=== PATIENT | male | born 1955 | race Caucasian/White ===

== ENCOUNTER → 2019-10-22 10:32 | Outpatient (BNVA) | payer MEDICARE, SELFPAY | PROVIDERS: Family Provider Registered Nurse; PCP Registered Nurse; Visit Provider Registered Nurse | DX: R19.7 Diarrhea, unspecified (principal); M54.5 Low back pain; G44.311 Acute post-traumatic headache, intractable; N52.8 Other male erectile dysfunction; R33.9 Retention of urine, unspecified | CPT/HCPCS: 83630; 87493; 87505; G0103 ==

== ENCOUNTER 2019-10-29 12:40 | Outpatient (RCR) | payer MEDICARE, SELFPAY | END 2019-11-21 23:59 | disposition home or self-care (01) | LOC: SPT 12:40 | PROVIDERS: Family Provider Registered Nurse; PCP Registered Nurse; Referring Provider Registered Nurse; Visit Provider Registered Nurse | DX: M54.5 Low back pain (principal); G44.311 Acute post-traumatic headache, intractable | CPT/HCPCS: 97110; 97140; 97162 ==

== ENCOUNTER 2019-11-03 15:04 | Emergency (ER) | payer MEDICARE, SELFPAY ==
[2019-11-03 15:24] VITALS: BP 146/83; PULSE 66; RESP 16; TEMP 36.6; O2SAT 94; BMI 32.9
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
--- NOTE | 2019-11-03 15:51 | PC.NURSE ---
PT TO XRAY VIA WHEELCHAIR
--- NOTE | 2019-11-03 15:56 | PC.NURSE ---
Pt returned from xray
[2019-11-03] MEDS: methylPREDNISolone (DEPO) 80 MG/ML INJ 1 mL IM (16:30)
[2019-11-03] MEDS: ketorolac 60 mg/2 mL INJ IM (16:35)
== END 2019-11-03 16:45 | disposition home or self-care (01) ==
PROVIDERS: Emergency Provider Nurse Practitioner Family; Family Provider Registered Nurse; PCP Registered Nurse
DX: M54.5 Low back pain (principal); G89.29 Other chronic pain; E11.9 Type 2 diabetes mellitus without complications; I10 Essential (primary) hypertension; Z87.891 Personal history of nicotine dependence; Z79.82 Long term (current) use of aspirin
CPT/HCPCS: 72100; 96372; 99281; 99283; J1040; J1885

== ENCOUNTER 2019-11-10 08:54 | Day surgery (SDC) | payer MEDICARE, SELFPAY ==
[2019-11-09 08:27] VITALS: BMI 32.9
--- NOTE | 2019-11-10 09:38 | ANES.PREANE2 ---
Pre-Anesthetic Assessment Pre-Anesthetic Assessment: Height/Weight: Height 1.8 m Weight 107.048 kg Proposed Procedure: Operation Date: 11/10/19 10:45 Proposed Procedures p Colonoscopy 49422 K52.9(Not Applicable) - Silvino Aguiar MD Social: Social History: Tobacco (quit 2009) and No alcohol Exam: Pre-Anes Outpt Exam: alert, oriented x 3, clear to auscultation bilaterally and regular rate & rhythm Airway: Submandibular: WNL Cervical ROM: WNL MP: 2 Dentition: False (upper) and Other (teeth very poor) History/ROS: No significant history except as noted Pulmonary: Pulmonary: None reported CV/HEM: CV/HEM: HTN : : None reported Hepatic: Hepatic: None reported GI: GI: GERD (controlled) Comments: s/p colon resec Metabolic: Metabolic: DM and Hyperlipidemia Musc/skel: Musc/skel: OA/DJD Neuropsych: Neuropsych: Dementia Anesthetic Plan: ASA status: 3 Anesthesia: Anesthesia Evaluation and MAC Risk of > 500 ml blood loss (7ml/kg in children): No PFSH Anesthesia PFSH: Medical History Acid reflux Back pain, lumbosacral Cancer of ascending colon Diabetes Hypertension Surgical History History of back surgery Hx of tonsillectomy S/P exploratory laparotomy 12/2018 S/P partial resection of colon 12/2018 Status post colonoscopy Family History Denies family history of Anesthesia complication Bleeding disorder Social History Smoking and tobacco status: former smoker Alcohol intake: never Lives independently: Yes Household members: spouse Marital status: Current occupational status: unemployed History of recent travel: No Current gender identity: Male Data Anesthesia Cardiac Studies: No Data to Display
[2019-11-10 10:19] VITALS: BP 151/87; PULSE 59; RESP 18; TEMP 36.1; O2SAT 95
[2019-11-10] MEDS: sodium chloride 0.9% 1,000 ML 30 ML (10:32)
[2019-11-10 10:35] LABS: Glucose Point of Care 100 mg/dL (70-110)
--- NOTE | 2019-11-10 11:09 | W.PM.OPSUD ---
Surgery/Procedure H&P Update DATE OF PROCEDURE: November 10, 2019 DATE H&P PERFORMED: 11/03/19 H&P UPDATE INFORMATION: H&P completed within last 30 days and No changes to prior documentation PREOP DIAGNOSIS: Chronic diarrhea PLANNED PROCEDURE: Operation Date: 11/10/19 10:45 Proposed Procedures p Colonoscopy 97037 K52.9(Not Applicable) - Silvino Aguiar MD
[2019-11-10 11:55] VITALS: BP 107/69; PULSE 56; RESP 16; TEMP 36.1; O2SAT 97
--- NOTE | 2019-11-10 12:04 | ANE.PACU2 ---
 Inpatient post-anesthesia follow up: Airway intact: Yes Vital signs: Temperature 97.0 F Pulse Rate 56 Respiratory Rate 16 Blood Pressure 107/69 Pulse Oximetry 97 Oxygen Delivery Me thod Nasal Cannula Oxygen Flow Rate 2 Fraction of Inspir ed Oxygen Hydration adequate: Yes Nausea and vomiting: No Pain level: 2 Mental status: Baseline
[2019-11-10 12:06] VITALS: BP 108/66; PULSE 60; RESP 16; O2SAT 99
== END 2019-11-10 12:21 | disposition home or self-care (01) ==
PROVIDERS: Family Provider Registered Nurse; PCP Registered Nurse; Visit Provider Surgery
PROC: 0DJD8ZZ Inspection of Lower Intestinal Tract, Via Natural or Artificial Opening Endoscopic (ICD-10-PCS; CPT 45378; principal; 2019-11-10 10:45)
DX: K52.9 Noninfective gastroenteritis and colitis, unspecified (principal); Z79.82 Long term (current) use of aspirin; K21.9 Gastro-esophageal reflux disease without esophagitis; E11.9 Type 2 diabetes mellitus without complications; I10 Essential (primary) hypertension; Z90.49 Acquired absence of other specified parts of digestive tract; Z87.891 Personal history of nicotine dependence; K57.30 Diverticulosis of large intestine without perforation or abscess without bleeding; E78.5 Hyperlipidemia, unspecified; M19.90 Unspecified osteoarthritis, unspecified site
CPT/HCPCS: 12345; 36416; 45380; 82274; 82962; 83630; 87493; 87505; 88305; J2704; J7030

== ENCOUNTER 2019-11-22 06:00 | Outpatient (RCR) | payer MEDICARE, SELFPAY | END 2019-12-22 23:59 | disposition home or self-care (01) | LOC: SPT 06:00 | PROVIDERS: Family Provider Registered Nurse; PCP Registered Nurse; Referring Provider Registered Nurse; Visit Provider Registered Nurse | DX: M54.5 Low back pain (principal); C44.311 Basal cell carcinoma of skin of nose | CPT/HCPCS: 97110 ==

== ENCOUNTER 2019-11-27 12:37 | Outpatient (CLI) | payer MEDICARE, SELFPAY ==
--- NOTE | 2019-11-27 13:00 | MR_ITS ---
WS: [id number] MRI LUMBAR SPINE NONCONTRAST TECHNIQUE: Sagittal T1, T2 and STIR imaging. Axial T1 and T2 imaging. CLINICAL INFORMATION: lumbar back pain COMPARISON: None. FINDINGS: Mild lumbar curve. No acute compression. Grade 1 anterolisthesis L5 on S1 with remote appearing left L5-S1 hemilaminectomy. Prominent dorsal epidural fat at the L3 level results in moderate to severe na rrowing of the thecal sac. L1-L2: No significant disc bulging. Mild facet arthropathy. Spinal canal and foramen are patent. L2-L3: Minimal right eccentric disc bulging with mild right and no left foraminal narrowing. Mild fac et arthropathy. Spinal canal is patent. L3-L4: Mild annular bulging with moderate central canal stenosis. Prominent dorsal epidural fat contr ibutes to stenosis. Mild right foraminal narrowing. Moderate facet arthropathy and ligament flavum hy pertrophy. L4-L5: Mild annular bulging with slight effacement of ventral thecal sac. Spinal canal and foramen ar e patent. Mild facet arthropathy. L5-S1: Slight anterolisthesis L5 on S1. Prior left L5-S1 hemilaminectomy. Advanced right facet arthro soledad. Mild right and no significant left foraminal narrowing. Visualized pelvic bony structures: Normal. Paravertebral soft tissues: Normal. MR/MR lumbar spine wo con* [id number] IMPRESSION: 1. Mild lumbar curve. No acute compression. 2. Prominent dorsal epidural fat L3-4 in combination with facet arthropathy an d ligamentum flavum hypertrophy results in moderate central canal stenosis. 3. Prior postoperative changes remote left L5-S1 hemilaminectomy. Spinal canal and foramen are patent at this level. 4. Trace anterolisthesis L5 on S1. 5. Mild right L3-4 foraminal narrowing. 6. Moderate facet arthropathy worse at L3-L4 and right L5-S1.
== END 2019-11-27 12:38 | disposition home or self-care (01) ==
LOC: RADSHAW 12:40
PROVIDERS: Family Provider Registered Nurse; PCP Registered Nurse; Visit Provider Registered Nurse
DX: M54.5 Low back pain (principal)
CPT/HCPCS: 72148

== ENCOUNTER 2019-12-02 07:51 | Outpatient (CLI) | payer MEDICARE, SELFPAY ==
--- NOTE | 2019-12-02 09:30 | CT_ITS ---
WS: [id number] CT ABDOMEN AND PELVIS WITH CONTRAST HISTORY: DIARRHEA, history of colon surgery. TECHNIQUE: Imaging performed of the abdomen and pelvis with IV contrast. Single phase imaging of the abdomen. Coronal and sagittal reformats are submitted. All CT scans at [facility] use at least one of these dose optimization techniques: automated exposure control; mA and/or kV adjustment per patient size (includes targeted exams where dose is matched to clinical indication); or iterativ e reconstruction. IV CONTRAST: Omnipaque 300; 95 mL IV. Oral contrast: Yes. DLP: 1205.49 mGycm COMPARISON: 01/02/2019 Lower thorax: Lung bases are clear. Heart is normal size. Small hiatal hernia. Liver/biliary system: Hypoechoic nodule measuring 6 mm in the LEFT lobe is stable. No metastatic dise ase. No biliary dilatation. Gallbladder: Normal. No gallstones or wall thickening. No pericholecystic fluid. Pancreas: Normal. Spleen: Normal. Adrenal glands: Normal. Right kidney: Normal. Left kidney: Normal. Aorta: Mild atherosclerosis and ectasia. No significant aneurysm. Lymphadenopathy: None. Free fluid: None. GI tract: Status post RIGHT hemicolectomy. There is slight dilatation of the ileocolic anastomosis. N o recurrent mass. No GI tract obstruction. There are several diverticula in the descending and sigmoi d colon. Most significant burden in the sigmoid colon with tortuosity and long segment mucosal thicke lina from chronic diverticulosis. Abdominal wall: Postsurgical changes along the midline of the anterior abdominal wall. Improved since the prior study from 01/02/2019 as expected. There is a small defect in the supraumbilical RIGHT late ral abdominal wall containing fat only. Pelvis: Normally distended urinary bladder. No free fluid or adenopathy. Bones: No osteoblastic or osteolytic bone disease. CT/CT abdomen pelvis w con* [id number] IMPRESSION: 1. Status post RIGHT hemicolectomy with stable ileal colic anastomosis. No rec urrent mass or adenopathy. 2. Extensive sigmoid diverticulosis with scattered diverticula in the descendi ng colon. No evidence for acute diverticulitis. 3. Small hiatal hernia. 4. Atherosclerosis aorta.
[2019-12-02] MEDS: iohexol 300 mg/mL 50 mL Btl PO (09:35)
[2019-12-02 09:37] LABS: Blood Urea Nitrogen 19 mg/dL (8-23)
[2019-12-02] MEDS: iohexol 300 mg/mL 100 mL Btl IV (09:45)
[2019-12-02 11:27] LABS: Carcinoembryonic Antigen 2.1 ng/mL (0.0-4.7)
== END 2019-12-02 07:52 | disposition home or self-care (01) ==
LOC: RADWPI 07:55
PROVIDERS: Family Provider Registered Nurse; PCP Registered Nurse; Visit Provider Surgery
DX: K57.30 Diverticulosis of large intestine without perforation or abscess without bleeding (principal); K44.9 Diaphragmatic hernia without obstruction or gangrene; I70.0 Atherosclerosis of aorta; Z98.890 Other specified postprocedural states; R19.7 Diarrhea, unspecified
CPT/HCPCS: 74177; 82378; 82565; 84520; Q9967

== ENCOUNTER → 2019-12-07 09:05 | Outpatient (BNVA) | payer MEDICARE, SELFPAY | PROVIDERS: Family Provider Registered Nurse; PCP Registered Nurse; Referring Provider Registered Nurse; Visit Provider Anesthesiology Pain Medicine | DX: M47.816 Spondylosis without myelopathy or radiculopathy, lumbar region (principal); M51.36 Other intervertebral disc degeneration, lumbar region; M54.40 Lumbago with sciatica, unspecified side; M62.830 Muscle spasm of back; Z79.891 Long term (current) use of opiate analgesic | CPT/HCPCS: 99204; 99205 ==

== ENCOUNTER → 2019-12-17 13:48 | Outpatient (BNVA) | payer MEDICARE, SELFPAY | PROVIDERS: Family Provider Registered Nurse; PCP Registered Nurse; Visit Provider Anesthesiology Pain Medicine | DX: M47.816 Spondylosis without myelopathy or radiculopathy, lumbar region (principal); M48.062 Spinal stenosis, lumbar region with neurogenic claudication | CPT/HCPCS: 64493; 64494; 64495; 64520; J2001; J3490 ==

== ENCOUNTER 2019-12-21 15:43 | Outpatient (CLI) | payer MEDICARE, SELFPAY ==
--- NOTE | 2019-12-21 08:00 | MR_ITS ---
WS: [id number] MRI LUMBAR SPINE WITH CONTRAST. HISTORY: Low back pain Prior noncontrast study obtained on 11/27/2019. COMPARISON: 11/27/2019 TECHNIQUE: Sagittal and axial multisequence imaging postcontrast submitted. Lumbar alignment is normal. Disc spaces and vertebral body heights are well-maintained. Postsurgical changes LEFT hemilaminectomy defect at L5-S1. There is an additional fluid collection measuring 1.3 cm in diameter posterior to the L3 spinous proc ess. This was not present on the prior study may be due to recent injection for pain management. Jaspal tional enhancement surrounding the RIGHT L5-S1 facet joint and soft tissues. Mild enhancement and lig amentum flavum at the L3-4 level. There is abundant posterior epidural fat produce significant stenos is and deformity of the ventral thecal sac and nerve roots. No mass or evidence for recurrent disc. MR/MR lumbar spine w con [id number] IMPRESSION: 1. Post contrast imaging only. 2. Status post LEFT hemilaminectomy defect at L5-S1 with no complications appa rent. No recurrent disc herniations are identified. 3. New 1.3 cm fluid collection with peripheral enhancement posterior to the L3 spinous process. May be from a recent injection by pain management. 4. No discitis or osteomyelitis. 5. Significant central canal stenosis at L3-4 and deformity of the thecal sac at L5-S1.
== END 2019-12-21 15:44 | disposition home or self-care (01) ==
PROVIDERS: Family Provider Registered Nurse; PCP Registered Nurse; Visit Provider Licensed Practical Nurse
DX: M54.5 Low back pain (principal); M48.061 Spinal stenosis, lumbar region without neurogenic claudication
CPT/HCPCS: 72149; A9579

== ENCOUNTER → 2020-02-17 09:42 | Outpatient (BNVA) | payer MEDICARE, SELFPAY | PROVIDERS: Family Provider Registered Nurse; PCP Registered Nurse; Visit Provider Anesthesiology Pain Medicine | DX: M47.816 Spondylosis without myelopathy or radiculopathy, lumbar region (principal); M48.062 Spinal stenosis, lumbar region with neurogenic claudication; M51.36 Other intervertebral disc degeneration, lumbar region; M54.41 Lumbago with sciatica, right side; M62.830 Muscle spasm of back; Z79.891 Long term (current) use of opiate analgesic | CPT/HCPCS: 99213 ==

== ENCOUNTER → 2020-03-04 12:43 | Outpatient (BNVA) | payer MEDICARE, SELFPAY | PROVIDERS: Family Provider Registered Nurse; PCP Registered Nurse; Visit Provider Anesthesiology Pain Medicine | DX: M47.816 Spondylosis without myelopathy or radiculopathy, lumbar region (principal); M48.062 Spinal stenosis, lumbar region with neurogenic claudication | CPT/HCPCS: 64493; 64494; 64495; J2001; J3490 ==

== ENCOUNTER → 2020-03-15 09:22 | Outpatient (BNVA) | payer MEDICARE, SELFPAY | PROVIDERS: Family Provider Registered Nurse; PCP Registered Nurse; Visit Provider Registered Nurse | DX: E11.42 Type 2 diabetes mellitus with diabetic polyneuropathy (principal); E66.9 Obesity, unspecified | CPT/HCPCS: 80053; 80061; 83036; 85025 ==

== ENCOUNTER → 2020-03-28 10:52 | Outpatient (BNVA) | payer MEDICARE, SELFPAY | PROVIDERS: Family Provider Registered Nurse; PCP Registered Nurse; Visit Provider Anesthesiology Pain Medicine | DX: M47.816 Spondylosis without myelopathy or radiculopathy, lumbar region (principal); M48.062 Spinal stenosis, lumbar region with neurogenic claudication; M51.17 Intervertebral disc disorders with radiculopathy, lumbosacral region; M51.36 Other intervertebral disc degeneration, lumbar region; M48.00 Spinal stenosis, site unspecified; M62.830 Muscle spasm of back; Z98.890 Other specified postprocedural states | CPT/HCPCS: 99213 ==

== ENCOUNTER → 2020-05-23 10:30 | Outpatient (BNVA) | payer MEDICARE, SELFPAY | PROVIDERS: Family Provider Registered Nurse; PCP Registered Nurse; Visit Provider Anesthesiology Pain Medicine | DX: M47.816 Spondylosis without myelopathy or radiculopathy, lumbar region (principal); M48.062 Spinal stenosis, lumbar region with neurogenic claudication; M51.36 Other intervertebral disc degeneration, lumbar region; M51.17 Intervertebral disc disorders with radiculopathy, lumbosacral region; M62.830 Muscle spasm of back; M48.00 Spinal stenosis, site unspecified; Z98.890 Other specified postprocedural states | CPT/HCPCS: 99213 ==

== ENCOUNTER → 2020-08-12 10:10 | Outpatient (BNVA) | payer MEDICARE, SELFPAY | PROVIDERS: Family Provider Registered Nurse; PCP Registered Nurse; Visit Provider Registered Nurse | DX: E11.9 Type 2 diabetes mellitus without complications (principal) | CPT/HCPCS: 80053; 83036 ==

== ENCOUNTER → 2020-08-23 11:04 | Outpatient (BNVA) | payer MEDICARE, SELFPAY | PROVIDERS: Family Provider Registered Nurse; PCP Registered Nurse; Visit Provider Registered Nurse | DX: J30.9 Allergic rhinitis, unspecified (principal); R09.82 Postnasal drip; J06.9 Acute upper respiratory infection, unspecified | CPT/HCPCS: 87635 ==

== ENCOUNTER → 2020-10-04 09:10 | Outpatient (BNVA) | payer MEDICARE, SELFPAY | PROVIDERS: Family Provider Registered Nurse; PCP Registered Nurse; Visit Provider Anesthesiology Pain Medicine | DX: M48.062 Spinal stenosis, lumbar region with neurogenic claudication (principal); M47.816 Spondylosis without myelopathy or radiculopathy, lumbar region; M51.36 Other intervertebral disc degeneration, lumbar region; M51.17 Intervertebral disc disorders with radiculopathy, lumbosacral region; M48.00 Spinal stenosis, site unspecified; M62.830 Muscle spasm of back; Z98.890 Other specified postprocedural states | CPT/HCPCS: 99213 ==

== ENCOUNTER → 2021-01-09 09:37 | Outpatient (BNVA) | payer MEDICARE, SELFPAY | PROVIDERS: Family Provider Registered Nurse; PCP Registered Nurse; Visit Provider Registered Nurse | DX: E78.5 Hyperlipidemia, unspecified (principal); E11.9 Type 2 diabetes mellitus without complications; K21.9 Gastro-esophageal reflux disease without esophagitis; I10 Essential (primary) hypertension; M54.40 Lumbago with sciatica, unspecified side | CPT/HCPCS: 80053; 80061; 83036; 85025 ==

== ENCOUNTER 2021-04-01 12:49 | Outpatient (CLI) | payer MEDICARE, SELFPAY | END 2021-04-01 12:50 | disposition home or self-care (01) | LOC: LAB 12:56 | PROVIDERS: PCP Registered Nurse; Visit Provider Surgery | DX: R19.7 Diarrhea, unspecified (principal) | CPT/HCPCS: 83630; 87177; 87209; 87493; 87506 ==

== ENCOUNTER → 2021-05-17 08:20 | Outpatient (BNVA) | payer MEDICARE, SELFPAY | PROVIDERS: PCP Registered Nurse; Visit Provider Anesthesiology Pain Medicine | DX: G89.29 Other chronic pain (principal); M51.36 Other intervertebral disc degeneration, lumbar region; M48.062 Spinal stenosis, lumbar region with neurogenic claudication; M47.816 Spondylosis without myelopathy or radiculopathy, lumbar region; M51.17 Intervertebral disc disorders with radiculopathy, lumbosacral region; M62.830 Muscle spasm of back; Z98.890 Other specified postprocedural states | CPT/HCPCS: 99214 ==

== ENCOUNTER 2021-05-19 15:58 | Observation (INO) | payer MEDICARE, SELFPAY ==
[2021-05-19] VITALS (15 sets, daily range): BP systolic 97–132; BP diastolic 58–78; PULSE 69–95; RESP 12–18; TEMP 36.1–38.6; O2SAT 91–97; BMI 32.9
--- NOTE | 2021-05-19 12:31 | ANES.PREANE2 ---
Documented by User: Luli Ozuna CRNA 05/19/21 12:37 Pre-Anesthetic Assessment Pre-Anesthetic Assessment: Height/Weight: Height 1.8 m Preop Diagnosis: Chronic diarrhea Proposed Procedure: Operation Date: 05/19/21 12:10 Proposed Procedures p Incision And Drainage buttock abscess L02.31 60306(Not Applicable) - Silvino Aguiar MD Familial anesthetic complications: none Was Beta Kerrie taken within 24 hours: N/A Was Clonidine taken within 24 hours: N/A Last intake: 05/18/21 1730- meal 05/19/21 0900 Social: Social History: No alcohol and No tobacco Airway: Submandibular: WNL Cervical ROM: WNL MP: 2 Dentition: Full History/ROS: No significant history except as noted Pulmonary: Pulmonary: COPD and None reported CV/HEM: CV/HEM: HTN : : None reported Hepatic: Hepatic: None reported GI: GI: GERD Metabolic: Metabolic: DM and Hyperlipidemia Musc/skel: Musc/skel: Lower Back Pain Neuropsych: Neuropsych: Neuropathy (feet) Anesthetic Plan: ASA status: 3 Anesthesia: General, Choice and MAC Risk of > 500 ml blood loss (7ml/kg in children): No PFSH Anesthesia PFSH: Medical History (Updated 05/19/21 @ 12:45 by Silvino Aguiar MD) Cancer of ascending colon Diabetes Epidural lipomatosis GERD (gastroesophageal reflux disease) Hypertension Intervertebral disc disorder with radiculopathy of lumbosacral region Lumbar stenosis with neurogenic claudication Stenosis, spinal, lumbar Surgical History History of back surgery 1980 Left L5-S1 hemilaminectomy Hx of tonsillectomy S/P exploratory laparotomy 12/2018 S/P partial resection of colon 12/2018 Status post colonoscopy 11/10/19:normal Family History (Updated 05/19/21 @ 11:03 by Odalys Reno) Other Cancer Denies family history of Anesthesia complication Bleeding disorder Social History Alcohol intake: never Household members: spouse Marital status: Current occupational status: retired History of recent travel: No Data Anesthesia Cardiac Studies: No Data to Display Documented by User: Flex Bonilla 05/19/21 15:44 PFSH Anesthesia PFSH: Medical History (Updated 05/19/21 @ 12:45 by Silvino Aguiar MD) Cancer of ascending colon Diabetes Epidural lipomatosis GERD (gastroesophageal reflux disease) Hypertension Intervertebral disc disorder with radiculopathy of lumbosacral region Lumbar stenosis with neurogenic claudication Stenosis, spinal, lumbar Surgical History History of back surgery 1980 Left L5-S1 hemilaminectomy Hx of tonsillectomy S/P exploratory laparotomy 12/2018 S/P partial resection of colon 12/2018 Status post colonoscopy 11/10/19:normal Family History (Updated 05/19/21 @ 11:03 by Odalys Reno) Other Cancer Denies family history of Anesthesia complication Bleeding disorder Social History Alcohol intake: never Household members: spouse Marital status: Current occupational status: retired History of recent travel: No Data Anesthesia Cardiac Studies: No Data to Display
--- NOTE | 2021-05-19 12:39 | W.PM.OPSUD ---
Surgery/Procedure H&P Update DATE OF PROCEDURE: May 19, 2021 DATE H&P PERFORMED: 05/19/21 H&P UPDATE INFORMATION: I have reviewed H&P completed within last 30 days, I have examined patient prior to procedure and No changes to prior documentation PREOP DIAGNOSIS: perianal abscess PLANNED PROCEDURE: Operation Date: 05/19/21 12:10 Proposed Procedures p Incision And Drainage buttock abscess L02.31 [id number](Not Applicable) - Silvino Aguiar MD
[2021-05-19] MEDS: sodium chloride 0.9% 1,000 ML 30 ML IV (12:59)
[2021-05-19] MEDS: fentaNYL 50 mcg/mL INJ 2mL IVP (13:01)
[2021-05-19] MEDS: piperacillin-tazobactam 3.375 GM in sodium chloride 0.9% (plus) 50 ML IV ×2 (13:44→21:51)
--- NOTE | 2021-05-19 14:27 | P.PCN_ITS ---
Documented by User: Mukund Candelario CRNA 05/19/21 14:28 PACU note PACU note: VSS, Good respiratory effort, report to SHAFT TENDER Post-Anesthesia Exam: awake
--- NOTE | 2021-05-19 14:27 | PM.PACU ---
Documented by User: Mukund Candealrio CRNA 05/19/21 14:28 PACU note PACU note: VSS, Good respiratory effort, report to ADVISOR TO COMMAND IN COMBAT Post-Anesthesia Exam: awake
--- NOTE | 2021-05-19 15:44 | ANE.PACU2 ---
Inpatient post-anesthesia follow up: Airway intact: Yes Vital signs: Temperature 98.2 F Pulse Rate 75 Respiratory Rate 16 Blood Pressure 116/71 Pulse Oximetry 93 Oxygen Delivery Me thod Room Air Oxygen Flow Rate Fraction of Inspir ed Oxygen Hydration adequate: Yes Nausea and vomiting: No Pain level: 2 Mental status: Baseline
--- NOTE | 2021-05-19 16:02 | PM.OP ---
Operative Report Date of procedure: May 19, 2021 Pre-op Diagnosis: perianal abscess Post-op Diagnosis: 7 x 5 cm perianal abscess Procedure Done: Incision and drainage of perianal abscess Pathology: Aerobic and anaerobic wound cultures Surgeon: Silvino Aguiar Anesthesia: MAC Condition: stable Disposition: PACU Procedure: The patient was taken to the operating room and placed in left lateral position under MAC after IV antibiotic had been administered. The perianal area was prepped and draped in a sterile manner. Using a 15 blade a 5 cm radial incision was made about 3 cm from the anal verge at the area of maximum fluctuance with drainage of yaya pus. Loculations were taken down bluntly, wound irrigated with saline and packed with Kerlix gauze soaked in 0.5% Marcaine. Sterile dressings were applied. The patient was transferred to recovery room in stable condition.
[2021-05-19] MEDS: oxyCODONE-APAP 5-325 mg Tablet 1 TAB PO (16:53)
[2021-05-19 17:23] LABS: Glucose Point of Care 86 mg/dL (70-110)
[2021-05-19] MEDS: sennosides-docusate Tablet 1 TAB PO (17:55)
[2021-05-19 21:33] LABS: Glucose Point of Care 122 mg/dL (70-110)
[2021-05-19] MEDS: lactated ringers 1,000 ML 100 ML IV (21:51)
[2021-05-19] MEDS: acetaminophen 325 mg Tablet 650 MG PO (21:52)
[2021-05-20] VITALS (7 sets, daily range): BP systolic 101–128; BP diastolic 60–78; PULSE 66–72; RESP 16–18; TEMP 36.6–37.3; O2SAT 92–94
[2021-05-20] MEDS: piperacillin-tazobactam 3.375 GM in sodium chloride 0.9% (plus) 50 ML IV ×2 (06:27→13:37)
[2021-05-20] MEDS: enoxaparin 40 mg/0.4 mL Syringe SUBCUT (06:27)
[2021-05-20] MEDS: oxyCODONE-APAP 5-325 mg Tablet 1 TAB PO ×2 (06:33→16:47)
[2021-05-20 06:51] LABS: Glucose Point of Care 97 mg/dL (70-110)
[2021-05-20] MEDS: sennosides-docusate Tablet 1 TAB PO (08:29)
[2021-05-20 09:48] LABS: Basophils % 0.4 %; Eosinophils # 0.3 10^3/uL (0.0-0.8); Eosinophils % 3.1 %; Hematocrit 40.6 % (42.0-52.0); Hemoglobin 13.1 g/dL (11.7-16.6); Lymphocytes # 1.1 10^3/uL (0.8-4.8); Lymphocytes % 11.9 %; Mean Corpuscular HGB Conc 32.3 g/dL (30.0-36.0); Mean Corpuscular Hemoglobin 28.8 pg (28.0-34.0); Mean Corpuscular Volume 89.2 fl (80-94); Monocytes # 0.6 10^3/uL (0.2-0.9); Monocytes % 6.6 %; Neutrophils # 7.01 10^3/uL (1.8-7.7); Neutrophils % 77.6 %; Nucleated Red Blood Cells % 0 %; Platelet Count 217 10^3/cmm (130-400); Red Blood Count 4.55 10^6/uL (4.1-5.3); Red Cell Distribution Width 13.1 % (12.1-15.1); White Blood Count 9.1 10^3/uL (4.0-10.0)
[2021-05-20 10:10] LABS: Anion Gap 17.1 (5-19); Blood Urea Nitrogen 17 mg/dL (8-23); Calcium 8.4 mg/dL (8.5-10.5); Carbon Dioxide 22 mmol/L (22-29); Chloride 101 mmol/L (98-107); Glomerular Filtration Rate 84.2 mL/min (90-130); Glucose 139 mg/dL (65-115); Osmolality Calculated 286 mOsm/kg (285-295); Potassium 4.1 mmol/L (3.5-5.1); Sodium 136 mmol/L (136-145)
[2021-05-20 11:05] LABS: Glucose Point of Care 119 mg/dL (70-110)
--- NOTE | 2021-05-20 11:25 | PM.DCS ---
Discharge Providers Date of Admission: 05/19/21 15:58 Date of Discharge: May 20, 2021 Attending Provider at Admission: Silvino Aguiar MD Attending Provider at Discharge: Silvino Aguiar MD Primary Care Provider: RUBEN Fernandez Reason for Visit Reason for Visit: Gluteal abscess Hospital Course Hospital Course This is a 65-year-old gentleman on whom I previously performed a right hemicolectomy for colon cancer. Patient states that he developed pain redness and swelling in the perianal region 6 days ago and was finally able to see his PCP today who referred him to our clinic. Patient noticed some drainage and has been having some chills but denies any fevers. No prior episodes in the past. Patient is a diabetic. Patient denies any trauma or insect bites Patient underwent incision and drainage of perianal abscess under MAC and the abscess measured about 5 x 7 cm. He was admitted overnight for IV antibiotics due to the extensive cellulitis. At time of discharge his vital signs were stable he was tolerating ADA diet and his erythema had improved. His white count was 9.1. Patient will be discharged home on oral Levaquin and Flagyl for 10 days after he receives 24 hours of IV antibiotics Discharge Data Data Completed and Pending: Pending at discharge Category Date Time Status Anaerobic Culture Routine Lab 05/19/21 14:09 Results Wound Culture and Gram Stain Routin e Lab 05/19/21 14:09 Results Labs from last 24 hours 05/20/21 05/20/21 05/20/21 10:55 08:39 08:39 WBC 9.1 RBC 4.55 Hgb 13.1 Hct 40.6 L MCV 89.2 MCH 28.8 MCHC 32.3 RDW 13.1 Plt Count 217 MPV 11.0 H Neut % (Auto) 77.6 Lymph % (Auto) 11.9 [place] % (Auto) 6.6 Eos % (Auto) 3.1 Baso % (Auto) 0.4 Neut # (Auto) 7.01 Lymph # (Auto) 1.1 [place] # (Auto) 0.6 Eos # (Auto) 0.3 Baso # (Auto) 0.0 Nucleated RBC % (a uto) 0 Nucleated RBCs # 0.0 Sodium 136 Potassium 4.1 Chloride 101 Carbon Dioxide 22 Anion Gap 17.1 BUN 17 Creatinine 0.9 GFR Calculation 84.2 L Glucose 139 H POC Glucose 119 H Calculated Osmolal ity 286 Calcium 8.4 L 05/20/21 05/19/21 05/19/21 06:45 20:42 17:13 WBC RBC Hgb Hct MCV MCH MCHC RDW Plt Count MPV Neut % (Auto) Lymph % (Auto) [place] % (Auto) Eos % (Auto) Baso % (Auto) Neut # (Auto) Lymph # (Auto) [place] # (Auto) Eos # (Auto) Baso # (Auto) Nucleated RBC % (a uto) Nucleated RBCs # Sodium Potassium Chloride Carbon Dioxide Anion Gap BUN Creatinine GFR Calculation Glucose POC Glucose 97 122 H 86 Calculated Osmolal ity Calcium Vitals: Last Vital Signs Temp 98.3 F 05/20/21 07:20 Pulse 68 05/20/21 07:20 Resp 18 05/20/21 07:20 BP 103/60 05/20/21 07:20 Pulse Ox 93 05/20/21 07:20 Discharge Plan Discharge Patient Disposition: Home Condition: Stable Prescriptions: New Zofran 4 mg tablet 4 mg PO Q6H PRN (Reason: nausea and vomiting) Qty: 20 RF: 0 Percocet 5-325 mg tablet 1 tab PO Q6H PRN (Reason: pain) Qty: 20 RF: 0 Colace 100 mg capsule 100 mg PO BID Qty: 30 RF: 0 Continued aspirin 81 mg tablet,delayed release (DR/EC) 81 mg PO DAILY RF: 0 (DME) Diabetic Shoes See Rx Instructions .ROUTE .MEDSUPPLY Qty: 1 RF: 0 fluticasone propionate [Flonase Allergy Relief] 50 mcg/actuation spray,suspension 1 spray intranasal BID Qty: 1 RF: 0 tizanidine 4 mg tablet 4 mg PO BID PRN (Reason: muscle spasticity) Qty: 60 RF: 2 gabapentin 300 mg capsule 300 mg PO TID Qty: 90 RF: 0 Rybelsus 3 mg tablet 3 mg PO DAILY 30 Days Qty: 30 RF: 0 levocetirizine 5 mg tablet See Rx Instructions .ROUTE .COMPLEX Qty: 90 RF: 0 citalopram 40 mg tablet See Rx Instructions .ROUTE .COMPLEX Qty: 90 RF: 0 telmisartan [Micardis] 40 mg tablet See Rx Instructions .ROUTE .COMPLEX Qty: 90 RF: 0 glipizide 5 mg tablet See Rx Instructions .ROUTE .COMPLEX Qty: 90 RF: 0 simvastatin 40 mg tablet See Rx Instructions .ROUTE .COMPLEX Qty: 90 RF: 0 Trulicity 0.75 mg/0.5 mL pen injector See Rx Instructions .ROUTE .COMPLEX Qty: 2 RF: 0 pantoprazole 40 mg tablet,delayed release (DR/EC) 40 mg PO DAILY RF: 0 hydrochlorothiazide 12.5 mg tablet 12.5 mg PO DAILY RF: 0 Discharge Orders: Discharge Order (Routine); Ordered 05/20/21 Ordered By: Silvino Aguiar Referrals: Silvino Aguiar MD [Physician] - 05/30/21 Activity Restrictions/Additional Instructions: Diet Normal diet as tolerated, increase fluid intake as much as possible. Activity Avoid strenuous activity for 2 weeks but continue with daily activities including walking as tolerated. Do not lift more than 10 pounds for 2 weeks Return to work/school You can return to work/ school whenever you feel ready as long as you don?t have to lift more than 10 pounds at work. If you have paperwork that needs to be completed for time off from work, please contact my office Driving You can resume driving once you stop using narcotic pain medications, and transition to non-opioid pain medications like Tylenol, Motrin, Aleve, etc. Medications Pain Take opioid pain medications as prescribed and transition to non-opioid pain medications like Tylenol, Motrin, Aleve etc. over the next few days. The goal of the pain medications is to make the pain bearable and not to be pain free since you recently had surgery. Resume all home medications after surgery as per the medication reconciliation list Nausea Nausea is common after surgery, take nausea medications as needed and stay on a liquid bland diet until nausea resolves. Constipation The combination of surgery, anesthesia and pain medications can result in constipation. Take stool softeners as prescribed. If you do not have a bowel movement in 3 days, please take an grjg-isp-fvmjncm laxative like MiraLAX to address the constipation. Shower It is ok to shower. Do not soak in bathtub, swimming pool or hot tub for 2 weeks. Wound care Irrigate wound in shower after removing packing and pack wound lightly once daily with Kerlix gauze. Problems with the wound: you can develop some redness around the incision from bruising after surgery. If there is increasing pain, redness, tenderness around the incision with or without drainage, please contact my office to rule out an infection. Sometimes the skin at the incisions can separate, resulting in reopening of the wound. Cover the wound with antibiotic cream and sterile dressings and contact my office. Contact physician Call the office at [phone] during office hours or go the Emergency Room ?Fever to 100.4 or greater ?Shaking chills ?Pain that increases over time ?Redness, warmth, or pus draining from incision sites ?Persistent nausea or inability to take in liquids Discharge Attestations Time Spent in Discharge Care*: less than 30 min Quality Metrics Clinical Quality Measures During this hospital stay, did patient experience: None Coding Level of Care Code Acute Gio GOODWIN DC note
--- NOTE | 2021-05-20 15:27 | PC.NURSE ---
Telephone order for hesham received from Dr. Aguiar. This nurse called in rx to [facility] in [place].
[2021-05-20 16:59] LABS: Glucose Point of Care 155 mg/dL (70-110)
== END 2021-05-20 18:26 | disposition home or self-care (01) ==
LOC: MEDSURG 15:59
PROVIDERS: Admitting Provider Surgery; PCP Registered Nurse; Visit Provider Surgery
PROC: (CPT 46045; principal; 2021-05-19 12:00)
DX: K61.0 Anal abscess (principal); Z85.038 Personal history of other malignant neoplasm of large intestine; Z90.49 Acquired absence of other specified parts of digestive tract; J44.9 Chronic obstructive pulmonary disease, unspecified; I10 Essential (primary) hypertension; E78.5 Hyperlipidemia, unspecified; E11.42 Type 2 diabetes mellitus with diabetic polyneuropathy; Z79.82 Long term (current) use of aspirin
CPT/HCPCS: 46045; 36416; 80048; 82962; 85025; 87070; 87075; 87077; 87186; 87205; 94664; 96365; 96372; G0378; J1650; J2543; J2704; J3010; J3490; J7030

== ENCOUNTER → 2021-07-24 09:35 | Outpatient (BNVA) | payer MEDICARE, SELFPAY | PROVIDERS: PCP Registered Nurse; Visit Provider Anesthesiology Pain Medicine | DX: G89.29 Other chronic pain (principal); M48.062 Spinal stenosis, lumbar region with neurogenic claudication; M47.816 Spondylosis without myelopathy or radiculopathy, lumbar region; M51.17 Intervertebral disc disorders with radiculopathy, lumbosacral region; M51.36 Other intervertebral disc degeneration, lumbar region; M62.830 Muscle spasm of back; Z98.890 Other specified postprocedural states | CPT/HCPCS: 99214 ==

== ENCOUNTER → 2021-09-13 09:27 | Outpatient (BNVA) | payer MEDICARE, SELFPAY | PROVIDERS: PCP Registered Nurse; Visit Provider Anesthesiology Pain Medicine | DX: G89.29 Other chronic pain (principal); M48.062 Spinal stenosis, lumbar region with neurogenic claudication; M47.816 Spondylosis without myelopathy or radiculopathy, lumbar region; M51.36 Other intervertebral disc degeneration, lumbar region; M51.17 Intervertebral disc disorders with radiculopathy, lumbosacral region; M62.830 Muscle spasm of back; Z98.890 Other specified postprocedural states | CPT/HCPCS: 99214 ==

== ENCOUNTER → 2021-10-16 08:38 | Outpatient (BNVA) | payer MEDICARE, SELFPAY | PROVIDERS: PCP Registered Nurse; Visit Provider Surgery | DX: Z11.52 Encounter for screening for COVID-19 (principal) | CPT/HCPCS: 87635 ==

== ENCOUNTER 2021-10-19 11:02 | Day surgery (SDC) | payer MEDICARE, SELFPAY ==
[2021-10-18 11:44] VITALS: BMI 33.9
[2021-10-19] VITALS (31 sets, daily range): BP systolic 108–166; BP diastolic 67–128; PULSE 68–123; RESP 3–20; TEMP 36.2–36.8; O2SAT 89–97
--- NOTE | 2021-10-19 11:30 | W.PM.OPSUD ---
Surgery/Procedure H&P Update DATE OF PROCEDURE: October 19, 2021 DATE H&P PERFORMED: 10/03/21 H&P UPDATE INFORMATION: I have reviewed H&P completed within last 30 days, I have examined patient prior to procedure and No changes to prior documentation PREOP DIAGNOSIS: Incisional hernia PLANNED PROCEDURE: Operation Date: 10/19/21 12:10 Proposed Procedures p Laparoscopic Incisional Hernia Repair w/ Mesh [id number] K43.2(Not Applicable) - Silvino Aguiar MD
--- NOTE | 2021-10-19 12:02 | P.ANESASSM_ITS ---
Pre-Anesthetic Assessment Height/Weight: Height 1.8 m Weight 110.223 kg Temp Pulse Resp BP Pulse Ox 97.8 F 68 18 154/86 96 10/19/21 11:25 10/19/21 11:25 10/19/21 11:25 10/19/21 11:25 10/19/21 11:25 Preop Diagnosis: Incisional hernia Operation Date: 10/19/21 12:10 Proposed Procedures p Laparoscopic Incisional Hernia Repair w/ Mesh [id number] K43.2(Not Applicable) - Silvino Aguiar MD Familial anesthetic complications: None Was Beta Kerrie taken within 24 hours: N/A Was Clonidine taken within 24 hours: N/A Last intake: Intake Last Liquid Date 10/18/21 Last Liquid Time 17:00 Last Solid Date 10/18/21 Last Solid Time 17:00 Social No alcohol and No tobacco (h/o smoking) Exam alert, oriented x 3 and regular rate & rhythm Airway Submandibular: within normal limits Cervical ROM: within normal limits Mallampati: Class II Dentition: chipped and false (upper) Comments: Comments: lower arch poor dentition Pulmonary Chronic Obstructive Pulmonary Disease CV/HEM Hypertension GI Gastroesophageal Reflux Disease Metabolic Diabetes Mellitus and Morbid Obesity Musc/skel Lower Back Pain and Osteoarthritis/DJD Anesthetic Plan ASA status: 3 Anesthesia: General Risk of > 500 ml blood loss (7ml/kg in children): No Medications/Allergies Home Medications Medication Instructions Recorded Confirmed Last Taken Type aspirin 81 mg tablet,delayed 81 mg PO DAILY tab 10/19/19 10/19/21 10/18/21 History release Diabetic Shoes #1 each 06/28/20 10/03/21 Unknown Rx fluticasone propionate 50 1 spray INTRANASAL BID #1 ea 08/23/20 10/18/21 Unknown Rx mcg/actuation nasal spray,suspension (Flonase Allergy Relief) levocetirizine 5 mg tablet See Rx Instructions .ROUTE 04/03/21 10/18/21 Unknown Rx .COMPLEX #90 tab gabapentin 300 mg capsule 300 mg PO TID #90 cap 05/17/21 10/18/21 Unknown Rx tizanidine 4 mg tablet 4 mg PO BID PRN #60 tab 05/17/21 10/19/21 Unknown Rx hydrochlorothiazide 12.5 mg tablet 12.5 mg PO DAILY 05/20/21 10/19/21 10/18/21 History Diabetic Combat Boots with 3 sets #1 ea 07/18/21 10/03/21 Unknown Rx of insoles glipizide 5 mg tablet See Rx Instructions .ROUTE 08/02/21 10/18/21 Unknown Rx .COMPLEX #60 tab telmisartan 40 mg tablet (Micardis) See Rx Instructions .ROUTE 08/29/21 10/19/21 10/18/21 Rx .COMPLEX #90 tab pantoprazole 40 mg tablet,delayed See Rx Instructions .ROUTE 10/10/21 10/19/21 10/18/21 Rx release .COMPLEX #90 tab citalopram 40 mg tablet See Rx Instructions .ROUTE 10/11/21 10/19/21 10/18/21 Rx .COMPLEX #90 tab oxycodone-acetaminophen 5 mg-325 1 tab PO Q6H PRN #20 tab 10/19/21 Unknown Rx mg tablet (Percocet) Allergies Allergy/AdvReac Type Severity Reaction Status Date / Time No Known Allergies Allergy Verified 10/18/21 11:41 [facility] Anesthesia Medical History (Updated 10/03/21 @ 15:58 by Silvino Aguiar MD) Cancer of ascending colon Diabetes Epidural lipomatosis GERD (gastroesophageal reflux disease) Hypertension Intervertebral disc disorder with radiculopathy of lumbosacral region Lumbar stenosis with neurogenic claudication Stenosis, spinal, lumbar Surgical History (Updated 10/19/21 @ 11:43 by Silvino Aguiar MD) History of back surgery 1980 Left L5-S1 hemilaminectomy History of incision and drainage (05/19/21) perianal abscess History of incisional hernia repair (10/19/21) Laparoscopic Hx of tonsillectomy S/P exploratory laparotomy 12/2018 S/P partial resection of colon 12/2018 Status post colonoscopy 11/10/19:normal Family History Other Cancer Denies family history of Anesthesia complication Bleeding disorder Social History Alcohol intake: never Household members: spouse Marital status: Current occupational status: retired History of recent travel: No Data Anesthesia Cardiac Studies: No Data to Display
[2021-10-19 12:12] LABS: Glucose Point of Care 120 mg/dL (70-110)
[2021-10-19] MEDS: sodium chloride 0.9% 1,000 ML 30 ML IV (12:13)
[2021-10-19] MEDS: HYDROmorphone 1 mg/mL INJ 1 mL 0.5 MG IVP ×2 (15:04→15:14)
[2021-10-19] MEDS: fentaNYL 50 mcg/mL INJ 2mL IVP ×2 (15:26→15:47)
--- NOTE | 2021-10-19 15:54 | P.OP_ITS ---
Operative Report Date of procedure: October 19, 2021 Pre-op diagnosis: Incarcerated incisional hernia, status post laparotomy for bowel obstruction History of right hemicolectomy 2019 Post-op diagnosis: Incarcerated incisional hernia, status post laparotomy for bowel obstruction History of right hemicolectomy 2019 Multiple [place] cheese defects along the length of the prior laparotomy incision containing incarcerated small bowel and omentum Procedure done: 1. Laparoscopic lysis of adhesions with LigaSure for 45 minutes 2. Laparoscopic repair of incarcerated incisional hernia with mesh using a ventralight ST mesh measuring 25 x 20 cm Pathology: none sent Surgeon: Silvino Aguiar Anesthesia: General Estimated blood loss (mL): 10 Condition: stable Disposition: PACU Procedure: The patient was taken to the Operating Room and was intubated under general anesthesia after the antibiotic had been administered. The abdomen was prepped and draped in a sterile manner. Using a 15 blade, a 2-cm incision was made in the left upper quadrant in the anterior axillary line, the peritoneum was entered using open Valerio technique. A 10 mm Alee port was placed and 15 mm of pneumoperitoneum was created after a 10 mm 30? scope had been introduced. 5 mm port was placed at the level of the umbilicus bilaterallly under direct visualization. There were omentum and small bowel adherent to the anterior abdominal wall along the laparotomy scar. Using LigaSure lysis of adhesions was performed for about 45 minutes. There were multiple [place] cheese defects containing incarcerated omentum which were all reduced A spinal needle was introduced through the abdominal wall and the edges of the hernial defect were marked and measured 18 x 10 cm. A 4 cm margin was marked on the abdominal wall on the outer edge of the hernial defect. 25 x [address] mesh was selected and 4 separate 2-0 Cement-Ramu sutures were placed at the 4 corners of the mesh. Grannie needle was passed through the stab incisions and used to grasp the free ends of the Cement-Ramu sutures which were then used to pull the mesh up against the abdominal wall; 5 mm SecurStraps were placed 1 cm apart along the edge of the mesh to hold it against the abdominal wall. At the end of this, it was noted that the mesh was well positioned over the hernial defect. 20 cc of saline mixed with 20cc of Exparel mixed with 20cc of 0.5% Marcaine was infiltrated in the midclavicular line bilaterally under laparoscopic visualization for a TAP block. All ports were removed under direct visualization and there was no bleeding noted from the port sites. The external oblique aponeurosis was approximated at LUQ port site using figure of eight 0 Vicryl suture. The subcutaneous tissue was approximated using 3-0 Vicryl sutures. The skin at all 3 port sites was closed using subcuticular 4-0 Monocryl suture. The stab incisions and the port sites were covered with Dermabond. Abdominal binder was placed at the end of the procedure and the patient was extubated and transferred to recovery room in stable condition.
--- NOTE | 2021-10-19 15:57 | ANE.PACU2 ---
Inpatient post-anesthesia follow up: Airway intact: Yes Vital signs: Temperature 97.6 F Pulse Rate 112 Respiratory Rate 3 Blood Pressure 135/84 Pulse Oximetry 95 Oxygen Delivery Me thod Nasal Cannula Oxygen Flow Rate 3 Fraction of Inspir ed Oxygen Hydration adequate: Yes Nausea and vomiting: No Pain level: 4 Mental status: Baseline
[2021-10-19] MEDS: oxyCODONE-APAP 5-325 mg Tablet 1 TAB PO (17:10)
== END 2021-10-19 17:47 | disposition home or self-care (01) ==
PROVIDERS: PCP Registered Nurse; Visit Provider Surgery
PROC: 0WQF4ZZ Repair Abdominal Wall, Percutaneous Endoscopic Approach (ICD-10-PCS; CPT 49655; principal; 2021-10-19 12:10)
DX: K43.0 Incisional hernia with obstruction, without gangrene (principal); K66.0 Peritoneal adhesions (postprocedural) (postinfection); Z90.49 Acquired absence of other specified parts of digestive tract; I10 Essential (primary) hypertension; K21.9 Gastro-esophageal reflux disease without esophagitis; E11.9 Type 2 diabetes mellitus without complications; E66.01 Morbid (severe) obesity due to excess calories; Z68.33 Body mass index [BMI] 33.0-33.9, adult; M19.90 Unspecified osteoarthritis, unspecified site; Z79.82 Long term (current) use of aspirin; Z85.038 Personal history of other malignant neoplasm of large intestine
CPT/HCPCS: 49655; 36416; 82962; C1781; C9290; J1170; J2405; J2704; J2710; J3010; J3490; J7030

== ENCOUNTER → 2021-11-08 10:31 | Outpatient (BNVA) | payer MEDICARE, SELFPAY | PROVIDERS: PCP Registered Nurse; Visit Provider Anesthesiology Pain Medicine | DX: G89.29 Other chronic pain (principal); M48.062 Spinal stenosis, lumbar region with neurogenic claudication; M47.816 Spondylosis without myelopathy or radiculopathy, lumbar region; M51.36 Other intervertebral disc degeneration, lumbar region; M51.17 Intervertebral disc disorders with radiculopathy, lumbosacral region; M62.830 Muscle spasm of back; Z98.890 Other specified postprocedural states | CPT/HCPCS: 99214 ==

== ENCOUNTER → 2021-11-24 09:46 | Outpatient (BNVA) | payer MEDICARE, SELFPAY | PROVIDERS: PCP Registered Nurse; Visit Provider Registered Nurse | DX: E11.9 Type 2 diabetes mellitus without complications (principal) | CPT/HCPCS: 83036; 85025 ==

== ENCOUNTER → 2021-11-27 13:13 | Outpatient (BNVA) | payer MEDICARE, SELFPAY | PROVIDERS: PCP Registered Nurse; Visit Provider Anesthesiology Pain Medicine | DX: M48.062 Spinal stenosis, lumbar region with neurogenic claudication (principal); E11.9 Type 2 diabetes mellitus without complications; Z79.891 Long term (current) use of opiate analgesic; M47.816 Spondylosis without myelopathy or radiculopathy, lumbar region | CPT/HCPCS: 36416; 64635; 64636; 82962; J1030 ==

== ENCOUNTER → 2021-12-11 13:03 | Outpatient (BNVA) | payer MEDICARE, SELFPAY | PROVIDERS: PCP Registered Nurse; Visit Provider Anesthesiology Pain Medicine | DX: M47.816 Spondylosis without myelopathy or radiculopathy, lumbar region (principal); M48.062 Spinal stenosis, lumbar region with neurogenic claudication; E11.9 Type 2 diabetes mellitus without complications; Z79.891 Long term (current) use of opiate analgesic; Z79.84 Long term (current) use of oral hypoglycemic drugs | CPT/HCPCS: 36416; 64635; 64636; 82962; J1030 ==

== ENCOUNTER → 2022-03-01 14:02 | Outpatient (BNVA) | payer MEDICARE, SELFPAY | PROVIDERS: PCP Registered Nurse; Visit Provider Registered Nurse | DX: F32.9 Major depressive disorder, single episode, unspecified (principal); R45.4 Irritability and anger; E11.9 Type 2 diabetes mellitus without complications; F32.A Depression, unspecified | CPT/HCPCS: 80053; 83036 ==

== ENCOUNTER → 2022-05-24 10:04 | Outpatient (BNVA) | payer MEDICARE, SELFPAY | PROVIDERS: PCP Registered Nurse; Visit Provider Registered Nurse | DX: E11.9 Type 2 diabetes mellitus without complications (principal); E78.5 Hyperlipidemia, unspecified; I10 Essential (primary) hypertension; K31.84 Gastroparesis; Z71.3 Dietary counseling and surveillance | CPT/HCPCS: 80053; 80061; 83036 ==

== ENCOUNTER → 2022-11-01 10:07 | Outpatient (BNVA) | payer MEDICARE, SELFPAY | PROVIDERS: PCP Registered Nurse; Visit Provider Registered Nurse | DX: E11.9 Type 2 diabetes mellitus without complications (principal); R09.81 Nasal congestion | CPT/HCPCS: 80061; 83036 ==

== ENCOUNTER → 2023-02-28 08:58 | Outpatient (BNVA) | payer MEDICARE, SELFPAY | PROVIDERS: PCP Registered Nurse; Visit Provider Registered Nurse | DX: E11.42 Type 2 diabetes mellitus with diabetic polyneuropathy (principal); I10 Essential (primary) hypertension; R60.0 Localized edema | CPT/HCPCS: 80053; 83036 ==

== ENCOUNTER → 2023-03-19 09:16 | Outpatient (BNVA) | payer MEDICARE, SELFPAY | PROVIDERS: PCP Registered Nurse; Visit Provider Podiatrist Foot & Ankle Surgery | DX: E11.42 Type 2 diabetes mellitus with diabetic polyneuropathy (principal); L84 Corns and callosities; L60.3 Nail dystrophy; I73.9 Peripheral vascular disease, unspecified; M21.41 Flat foot [pes planus] (acquired), right foot; M21.42 Flat foot [pes planus] (acquired), left foot | CPT/HCPCS: 11056; 11721 ==

== ENCOUNTER → 2023-07-23 11:12 | Outpatient (BNVA) | payer MEDICARE, SELFPAY | PROVIDERS: PCP Registered Nurse; Visit Provider Podiatrist Foot & Ankle Surgery | DX: E11.42 Type 2 diabetes mellitus with diabetic polyneuropathy (principal); L84 Corns and callosities; L60.3 Nail dystrophy; I73.9 Peripheral vascular disease, unspecified | CPT/HCPCS: 11056; 11721 ==

== ENCOUNTER → 2023-08-05 10:54 | Outpatient (BNVA) | payer MEDICARE, SELFPAY | PROVIDERS: PCP Registered Nurse; Visit Provider Registered Nurse | DX: E11.9 Type 2 diabetes mellitus without complications (principal); H53.8 Other visual disturbances | CPT/HCPCS: 80053; 83036 ==

== ENCOUNTER → 2023-10-23 14:25 | Outpatient (BNVA) | payer MEDICARE, SELFPAY | PROVIDERS: PCP Registered Nurse; Visit Provider Podiatrist Foot & Ankle Surgery | DX: E11.42 Type 2 diabetes mellitus with diabetic polyneuropathy (principal); L84 Corns and callosities; L60.3 Nail dystrophy; I73.9 Peripheral vascular disease, unspecified | CPT/HCPCS: 11056; 11721 ==

== ENCOUNTER → 2023-11-29 10:46 | Outpatient (BNVA) | payer MEDICARE, SELFPAY | PROVIDERS: PCP Registered Nurse; Visit Provider Registered Nurse | DX: E11.9 Type 2 diabetes mellitus without complications (principal) | CPT/HCPCS: 80053; 80061; 83036; 85025 ==

== ENCOUNTER 2023-12-18 11:36 | Outpatient (CLI) | payer MEDICARE, SELFPAY ==
--- NOTE | 2023-12-18 12:00 | CT_ITS ---
WS: [id number] LDCT LUNG CANCER SCREENING TECHNIQUE: Noncontrast CT of the chest with coronal and sagittal reformatted images. CLINICAL INFORMATION: Z12.2 - Encounter for screening for malignant neoplasm of... COMPARISON: None. DLP: 107.51 mGy.cm DIvol: Mean CTDIvol: 2.40 (mGy) All CT scans at [facility] use at least one of these dose optimization techniques: automat ed exposure control; mA and/or kV adjustment per patient size (includes targeted exams where dose is matched to clinical indication); or iterative reconstruction. FINDINGS: Mild chronic emphysematous changes. Slight patchy atelectasis in the RIGHT middle lobe. Sli ght dependent atelectasis in both lower lobes. No suspicious pulmonary parenchymal abnormalities. Normal caliber thoracic aorta. Aortic calcification. Coronary calcification. No mediastinal or hilar lymphadenopathy. Tiny esophageal hiatal hernia. No axillary lymphadenopathy. Adrenal glands are normal. Mild thoracic kyphosis. IMPRESSION: CT/CT lung screening 15914 LUNG-RADS: 1-Negative FOLLOW UP: 12 Month: Continue annual screening with LDCT
== END 2023-12-18 11:37 | disposition home or self-care (01) ==
LOC: RAD 11:36
PROVIDERS: PCP Registered Nurse; Visit Provider Registered Nurse
DX: Z12.2 Encounter for screening for malignant neoplasm of respiratory organs (principal); J43.9 Emphysema, unspecified; J98.11 Atelectasis; Z87.891 Personal history of nicotine dependence
CPT/HCPCS: 71271

== ENCOUNTER → 2023-12-19 13:27 | Outpatient (BNVA) | payer MEDICARE, SELFPAY | PROVIDERS: PCP Registered Nurse; Visit Provider Surgery | DX: Z12.11 Encounter for screening for malignant neoplasm of colon (principal); K21.9 Gastro-esophageal reflux disease without esophagitis | CPT/HCPCS: 99204; 99214 ==

== ENCOUNTER → 2024-01-01 14:54 | Outpatient (BNVA) | payer MEDICARE, SELFPAY | PROVIDERS: PCP Registered Nurse; Visit Provider Podiatrist Foot & Ankle Surgery | DX: E11.42 Type 2 diabetes mellitus with diabetic polyneuropathy (principal); L84 Corns and callosities; L60.3 Nail dystrophy; I73.9 Peripheral vascular disease, unspecified | CPT/HCPCS: 11056; 11721 ==

== ENCOUNTER 2024-01-29 06:56 | Day surgery (SDC) | payer MEDICARE, SELFPAY ==
[2024-01-29 07:39] VITALS: BP 139/86; PULSE 77; RESP 18; TEMP 36.4; O2SAT 95; BMI 34.8
[2024-01-29] MEDS: sodium chloride 0.9% 1,000 ML 30 ML IV (07:50)
[2024-01-29 07:53] LABS: Glucose Point of Care 134 mg/dL (70-110)
--- NOTE | 2024-01-29 07:59 | P.ANESASSM_ITS ---
Pre-Anesthetic Assessment Height/Weight: Height 1.8 m Weight 113.398 kg Temp Pulse Resp BP Pulse Ox O2 Del Method 97.5 F L 77 18 139/86 95 Room Air 01/29/24 07:39 01/29/24 07:39 01/29/24 07:39 01/29/24 07:39 01/29/24 07:39 01/29/24 07:39 Preop Diagnosis: screening, GERD Operation Date: 01/29/24 08:30 Proposed Procedures p EGD(Not Applicable) - Rinku Leahy DO s Colonoscopy(Not Applicable) - Rinku Leahy DO Familial anesthetic complications: none Was Beta Kerrie taken within 24 hours: N/A Was Clonidine taken within 24 hours: N/A Last intake: Intake Last Liquid Date 01/28/24 Last Liquid Time 20:00 Last Solid Date 01/27/24 Last Solid Time 18:00 Social No alcohol and No tobacco Exam alert, oriented x 3, clear to auscultation bilaterally and regular rate & rhythm Airway Submandibular: within normal limits Cervical ROM: within normal limits Mallampati: Class II Dentition: false (upper and lower plate) Pulmonary None reported CV/HEM Hypertension None reported Hepatic None reported GI Gastroesophageal Reflux Disease Metabolic Diabetes Mellitus and Hyperlipidemia non-insulin dependent [facility] None reported Neuropsych None reported Anesthetic Plan ASA status: 3 Medications/Allergies Home Medications Medication Instructions Recorded Confirmed Last Taken Type Diabetic Shoes #1 ea 06/28/20 01/01/24 Unknown Rx fluticasone propionate 50 1 spray intranasal BID #1 ea 08/23/20 01/29/24 Unknown Rx mcg/actuation nasal spray,suspension (Flonase Allergy Relief) Diabetic Combat Boots with 3 sets #1 ea 07/18/21 01/01/24 Unknown Rx of insoles Diabetic Shoes with 3 pairs of #1 ea 03/19/23 01/01/24 Unknown Rx inserts olopatadine 0.2 % eye drops 1 drp ophthalmic (eye) DAILY #2.5 08/05/23 01/29/24 01/27/24 Rx (Pataday Once Daily Relief) mL glipizide 5 mg tablet 5 mg PO BID 90 days #180 tabs 10/18/23 01/29/24 01/27/24 Rx dulaglutide 0.75 mg/0.5 mL 0.75 mg (0.5 mL) SUBCUT .weekly 30 11/29/23 01/29/24 01/21/24 Rx subcutaneous pen injector days #2 mL (Trulicity) pantoprazole 40 mg tablet,delayed 40 mg PO BID 6 weeks #84 tabs 12/19/23 01/29/24 01/28/24 Rx release (Protonix) amlodipine 10 mg tablet 10 mg PO DAILY 01/27/24 01/29/24 01/28/24 History atorvastatin 10 mg tablet 10 mg PO DAILY 01/27/24 01/29/24 01/28/24 History citalopram 40 mg tablet 40 mg PO DAILY 01/27/24 01/29/24 01/28/24 History furosemide 20 mg tablet 20 mg PO DAILY 01/27/24 01/29/24 01/28/24 History potassium chloride 10 mEq 10 meq PO DAILY 01/27/24 01/29/24 01/28/24 History tablet,extended release(part/cryst) telmisartan 80 mg tablet 80 mg PO DAILY 01/27/24 01/29/24 01/28/24 History Allergies Allergy/AdvReac Type Severity Reaction Status Date / Time No Known Allergies Allergy Verified 01/29/24 07:35 Current Medications Generic Name Dose Route Start Last Admin Trade Name Freq PRN Reason Stop Dose Admin Sodium Chloride 1,000 mls @ 30 mls/hr 01/29/24 07:30 01/29/24 07:50 Sodium Chloride 0.9% IV 01/30/24 07:29 30 mls/hr .Q24H JANET Administration PFSH Anesthesia Medical History Depression GERD (gastroesophageal reflux disease) Former heavy cigarette smoker (20-39 per day) Chronic diarrhea Diastasis recti Arthritis of right knee Stenosis, spinal, lumbar Epidural lipomatosis Lumbar stenosis with neurogenic claudication Intervertebral disc disorder with radiculopathy of lumbosacral region Facet arthropathy, lumbar Degenerative lumbar disc Urinary hesitancy Central stenosis of spinal canal Callus of foot Onychodystrophy Back pain, lumbosacral Chronic diarrhea Cancer of ascending colon Diabetes Hypertension Surgical History History of incisional hernia repair (10/19/21) Laparoscopic History of incision and drainage (05/19/21) perianal abscess Status post colonoscopy 11/10/19:normal S/P exploratory laparotomy 12/2018 S/P partial resection of colon 12/2018 History of back surgery 1980 Left L5-S1 hemilaminectomy Hx of tonsillectomy Family History Other Cancer Denies family history of Anesthesia complication Bleeding disorder Social History Smoking and tobacco/nicotine status: never used tobacco/nicotine Alcohol intake: never Substance/Drug Use: never Household members: spouse Marital status: Current occupational status: retired Data Anesthesia Cardiac Studies: No Data to Display
[2024-01-29 08:54] LABS: Alanine Aminotransferase 35 U/L (0-41); Albumin Level 4.1 g/dL (3.5-5.2); Alkaline Phosphatase 92 U/L (40-130); Anion Gap 17.9 (5-19); Aspartate Amino Transferase 23 U/L (0-40); Blood Urea Nitrogen 15 mg/dL (8-23); Calcium 9.1 mg/dL (8.5-10.5); Carbon Dioxide 24 mmol/L (22-29); Chloride 100 mmol/L (98-107); Creatinine Clr Calc Pharmacy 97.8047; Globulin 2.9 g/dL (1.3-4.6); Glomerular Filtration Rate 83.4 mL/min (90-130); Glucose 127 mg/dL (65-115); Osmolality Calculated 288 mOsm/kg (285-295); Potassium 3.9 mmol/L (3.5-5.1); Sodium 138 mmol/L (136-145); Total Bilirubin 0.7 mg/dL (0.15-1.2)
--- NOTE | 2024-01-29 09:15 | P.HP_ITS ---
Providers/Chief Complaint 2 Primary Care Provider: RUBEN Fernandez Chief Complaint: K21.9, Z12.11 History of Present Illness Agustin Bah is a 68 year old male Review of Systems 2 General: Reports: 10 or more systems reviewed and unremarkable except in HPI and below Medications/Allergies Home Medications Medication Instructions Recorded Confirmed Last Taken Type Diabetic Shoes #1 ea 06/28/20 01/01/24 Unknown Rx fluticasone propionate 50 1 spray intranasal BID #1 ea 08/23/20 01/29/24 Unknown Rx mcg/actuation nasal spray,suspension (Flonase Allergy Relief) Diabetic Combat Boots with 3 sets #1 ea 07/18/21 01/01/24 Unknown Rx of insoles Diabetic Shoes with 3 pairs of #1 ea 03/19/23 01/01/24 Unknown Rx inserts olopatadine 0.2 % eye drops 1 drp ophthalmic (eye) DAILY #2.5 08/05/23 01/29/24 01/27/24 Rx (Pataday Once Daily Relief) mL glipizide 5 mg tablet 5 mg PO BID 90 days #180 tabs 10/18/23 01/29/24 01/27/24 Rx dulaglutide 0.75 mg/0.5 mL 0.75 mg (0.5 mL) SUBCUT .weekly 30 11/29/23 01/29/24 01/21/24 Rx subcutaneous pen injector days #2 mL (Trulicity) pantoprazole 40 mg tablet,delayed 40 mg PO BID 6 weeks #84 tabs 12/19/23 01/29/24 01/28/24 Rx release (Protonix) amlodipine 10 mg tablet 10 mg PO DAILY 01/27/24 01/29/24 01/28/24 History atorvastatin 10 mg tablet 10 mg PO DAILY 01/27/24 01/29/24 01/28/24 History citalopram 40 mg tablet 40 mg PO DAILY 01/27/24 01/29/24 01/28/24 History furosemide 20 mg tablet 20 mg PO DAILY 01/27/24 01/29/24 01/28/24 History potassium chloride 10 mEq 10 meq PO DAILY 01/27/24 01/29/24 01/28/24 History tablet,extended release(part/cryst) telmisartan 80 mg tablet 80 mg PO DAILY 05/03/1601/29/24 01/28/24 History Allergies Allergy/AdvReac Type Severity Reaction Status Date / Time No Known Allergies Allergy Verified 01/29/24 07:35 PFSH Acute 2 PFSH: Medical History Depression GERD (gastroesophageal reflux disease) Former heavy cigarette smoker (20-39 per day) Chronic diarrhea Diastasis recti Arthritis of right knee Stenosis, spinal, lumbar Epidural lipomatosis Lumbar stenosis with neurogenic claudication Intervertebral disc disorder with radiculopathy of lumbosacral region Facet arthropathy, lumbar Degenerative lumbar disc Urinary hesitancy Central stenosis of spinal canal Callus of foot Onychodystrophy Back pain, lumbosacral Chronic diarrhea Cancer of ascending colon Diabetes Hypertension Surgical History History of incisional hernia repair (10/19/21) Laparoscopic History of incision and drainage (05/19/21) perianal abscess Status post colonoscopy 11/10/19:normal S/P exploratory laparotomy 12/2018 S/P partial resection of colon 12/2018 History of back surgery 1980 Left L5-S1 hemilaminectomy Hx of tonsillectomy Family History Other Cancer Denies family history of Anesthesia complication Bleeding disorder Social History Smoking and tobacco/nicotine status: never used tobacco/nicotine Alcohol intake: never Substance/Drug Use: never Household members: spouse Marital status: Current occupational status: retired Vitals/I&O/Wt Last Vital Signs Temp 97.5 F L 01/29/24 07:39 Pulse 77 01/29/24 07:39 Resp 18 01/29/24 07:39 BP 139/86 01/29/24 07:39 Pulse Ox 95 01/29/24 07:39 O2 Del Method Room Air 01/29/24 07:39 Weight last 48 hrs Weight 250 lb Data 01/29/24 08:14 A&P Assessment and plan (1) S/P partial resection of colon: (2) Acid reflux: Qualifiers: Esophagitis presence: without esophagitis Qualified Code(s): K21.9 - Gastro-esophageal reflux disease without esophagitis Plan EGD and colonoscopy Attestations 2 Medical Necessity Statement*: Home Coding Level of Care Code Acute Code for Chg Fwd Diagnoses S/P partial resection of colon Z90.49 Gastroesophageal reflux disease without esophagitis K21.9 Esophagitis presence: without esophagitis
[2024-01-29 09:36] VITALS: BP 92/57; PULSE 72; RESP 18; TEMP 36.1; O2SAT 95
[2024-01-29 09:46] VITALS: BP 92/57; PULSE 71; RESP 18; O2SAT 90
[2024-01-29 09:56] VITALS: BP 100/60; PULSE 75; RESP 18; O2SAT 95
[2024-01-29 10:06] VITALS: BP 92/57; PULSE 75; RESP 18; O2SAT 93
--- NOTE | 2024-01-29 10:35 | ANE.PACU2 ---
Inpatient post-anesthesia follow up: Airway intact: Yes Vital signs: Temperature 97.0 F Pulse Rate 75 Respiratory Rate 18 Blood Pressure 92/57 Pulse Oximetry 93 Oxygen Delivery Me thod Room Air Oxygen Flow Rate 3 Fraction of Inspir ed Oxygen Hydration adequate: Yes Nausea and vomiting: No Pain level: 1 Mental status: Baseline
== END 2024-01-29 10:35 | disposition home or self-care (01) ==
PROVIDERS: Anesthesiology; PCP Registered Nurse; Visit Provider Surgery
PROC: 0DJ08ZZ Inspection of Upper Intestinal Tract, Via Natural or Artificial Opening Endoscopic (ICD-10-PCS; CPT 43235; principal; 2024-01-29 08:30)
PROC: 0DJD8ZZ Inspection of Lower Intestinal Tract, Via Natural or Artificial Opening Endoscopic (ICD-10-PCS; CPT 45378; 2024-01-29 08:30)
DX: Z85.038 Personal history of other malignant neoplasm of large intestine (principal); K21.9 Gastro-esophageal reflux disease without esophagitis; E11.9 Type 2 diabetes mellitus without complications
CPT/HCPCS: 36416; 43239; 45378; 80053; 82962; 88305; J2704; J7030

== ENCOUNTER → 2024-02-10 09:55 | Outpatient (BNVA) | payer MEDICARE, SELFPAY | PROVIDERS: PCP Registered Nurse; Visit Provider Surgery | DX: Z09 Encounter for follow-up examination after completed treatment for conditions other than malignant neoplasm (principal); Q40.2 Other specified congenital malformations of stomach; Z85.038 Personal history of other malignant neoplasm of large intestine | CPT/HCPCS: 99214 ==

== ENCOUNTER → 2024-04-01 15:30 | Outpatient (BNVA) | payer MEDICARE, SELFPAY | PROVIDERS: PCP Registered Nurse; Visit Provider Podiatrist Foot & Ankle Surgery | DX: E11.42 Type 2 diabetes mellitus with diabetic polyneuropathy (principal); L84 Corns and callosities; L60.3 Nail dystrophy; I73.9 Peripheral vascular disease, unspecified | CPT/HCPCS: 11056; 11721 ==

== ENCOUNTER → 2024-05-18 08:12 | Outpatient (BNVA) | payer MEDICARE, SELFPAY | PROVIDERS: PCP Registered Nurse; Visit Provider Registered Nurse | DX: E11.9 Type 2 diabetes mellitus without complications (principal) | CPT/HCPCS: 80053; 80061; 83036; 85025 ==

== ENCOUNTER → 2024-06-24 10:07 | Outpatient (BNVA) | payer MEDICARE, SELFPAY | PROVIDERS: PCP Registered Nurse; Visit Provider Registered Nurse | DX: E11.9 Type 2 diabetes mellitus without complications (principal) | CPT/HCPCS: 80053; 83036 ==

== ENCOUNTER → 2024-07-01 10:37 | Outpatient (BNVA) | payer MEDICARE, SELFPAY | PROVIDERS: PCP Registered Nurse; Visit Provider Podiatrist Foot & Ankle Surgery | DX: E11.8 Type 2 diabetes mellitus with unspecified complications (principal); E11.42 Type 2 diabetes mellitus with diabetic polyneuropathy; L84 Corns and callosities; L60.3 Nail dystrophy; I73.9 Peripheral vascular disease, unspecified; M20.41 Other hammer toe(s) (acquired), right foot; M20.42 Other hammer toe(s) (acquired), left foot | CPT/HCPCS: 11056; 11721 ==

== ENCOUNTER 2024-08-04 11:17 | Outpatient (CLI) | payer MEDICARE, SELFPAY ==
--- NOTE | 2024-08-04 11:19 | XRR_ITS ---
PROCEDURE INFORMATION: Exam: XR Bilateral Hips Exam date and time: 08/04/2024 11:43 AM Age: 68 years old Clinical indication: Hip pain; Bilateral; Additional info: M25.551 - pain in right hip TECHNIQUE: Imaging protocol: Radiologic exam of the bilateral hips. Views: 2 views of hips with pelvis when performed. COMPARISON: CT abdomen pelvis w con* [id number] 12/02/2019 9:43 AM FINDINGS: Bones/joints: Moderate to severe generalized bony degenerative changes. Bony structures appear otherwise unremarkable. The visualized sacral arches appear intact. No visualized evidence for acute bony fracture or dislocation. Soft tissues: Unremarkable. Vasculature: Mild atherosclerotic arterial vascular wall calcifications are demonstrated. XR/XR hip BI m 5V wo/w pel* [id number] IMPRESSION: 1. No acute bony abnormality identified. 2. Chronic bony changes.
== END 2024-08-04 11:18 | disposition home or self-care (01) ==
LOC: RAD 11:18
PROVIDERS: PCP Registered Nurse; Visit Provider Nurse Practitioner Family
DX: M16.0 Bilateral primary osteoarthritis of hip (principal)
CPT/HCPCS: 73523

== ENCOUNTER → 2024-09-21 09:55 | Outpatient (BNVA) | payer MEDICARE, SELFPAY | PROVIDERS: PCP Registered Nurse; Visit Provider Podiatrist Foot & Ankle Surgery | DX: E11.8 Type 2 diabetes mellitus with unspecified complications (principal); E11.42 Type 2 diabetes mellitus with diabetic polyneuropathy; L84 Corns and callosities; L60.3 Nail dystrophy; I73.9 Peripheral vascular disease, unspecified | CPT/HCPCS: 11056; 11721 ==

== ENCOUNTER → 2024-10-27 10:04 | Outpatient (BNVA) | payer MEDICARE, SELFPAY | PROVIDERS: PCP Registered Nurse; Visit Provider Registered Nurse | DX: E11.9 Type 2 diabetes mellitus without complications (principal); E11.42 Type 2 diabetes mellitus with diabetic polyneuropathy | CPT/HCPCS: 80053; 80061; 83036; 85025 ==

== ENCOUNTER → 2024-11-13 10:33 | Outpatient (BNVA) | payer MEDICARE, SELFPAY | PROVIDERS: PCP Registered Nurse; Visit Provider Registered Nurse | DX: R11.10 Vomiting, unspecified (principal) | CPT/HCPCS: 87400 ==

== ENCOUNTER → 2024-12-21 09:42 | Outpatient (BNVA) | payer MEDICARE, SELFPAY | PROVIDERS: PCP Registered Nurse; Visit Provider Podiatrist Foot & Ankle Surgery | DX: E11.42 Type 2 diabetes mellitus with diabetic polyneuropathy (principal); L84 Corns and callosities; L60.3 Nail dystrophy; E11.8 Type 2 diabetes mellitus with unspecified complications; I73.9 Peripheral vascular disease, unspecified | CPT/HCPCS: 11056; 11721 ==

== ENCOUNTER → 2025-01-07 13:20 | Outpatient (BNVA) | payer MEDICARE, SELFPAY | PROVIDERS: PCP Registered Nurse; Visit Provider Nurse Practitioner Family | DX: E11.9 Type 2 diabetes mellitus without complications (principal) | CPT/HCPCS: 82962 ==

== ENCOUNTER → 2025-02-23 08:54 | Outpatient (BNVA) | payer MEDICARE, SELFPAY | PROVIDERS: PCP Registered Nurse; Visit Provider Registered Nurse | DX: R60.0 Localized edema (principal); E11.9 Type 2 diabetes mellitus without complications | CPT/HCPCS: 83036; 83880 ==

== ENCOUNTER 2025-03-17 09:17 | Outpatient (CLI) | payer MEDICARE, SELFPAY ==
--- NOTE | 2025-03-17 09:25 | XR_ITS ---
WS: [email or web address] Exam: XR KUB [id number] Date/Time of Exam: 03/17/2025 9:39 AM Reason For Exam: K59.00 - Constipation, unspecified No bowel obstruction or free air. No sign of constipation. An ovoid opacity seen in the RIGHT abdomen may represent medication in the GI tract. Nonspecific small RIGHT abdominal calcifications. Bony changes in the pelvis and lumbar spine to suggest diffuse idiopathic skeletal hyperostosis. XR/XR KUB [id number] IMPRESSION: 1. No acute abdominal findings. No sign of constipation. 2. Nonspecific small RIGHT abdominal calcifications. Additional minor findings as above.
== END 2025-03-17 09:18 | disposition home or self-care (01) ==
PROVIDERS: PCP Registered Nurse; Visit Provider Registered Nurse
DX: K59.00 Constipation, unspecified (principal); R93.5 Abnormal findings on diagnostic imaging of other abdominal regions, including retroperitoneum; R93.7 Abnormal findings on diagnostic imaging of other parts of musculoskeletal system
CPT/HCPCS: 74018

== ENCOUNTER 2025-03-31 12:06 | Outpatient (CLI) | payer MEDICARE, SELFPAY ==
--- NOTE | 2025-03-31 12:11 | XR_ITS ---
WS: [email or web address] Exam: XR cervical spine 3V* [id number] Date/Time of Exam: 03/31/2025 12:35 PM Reason For Exam: M54.12 - Radiculopathy, cervical region Comparison 11/05/2018. No fracture or malalignment identified. Anterior bridging osteophytes from C4- C7. Disc spaces are relatively well-maintained. Moderate facet DJD at all levels. Normal paraspinal soft tissues. The dens is intact. XR/XR cervical spine 3V* [id number] IMPRESSION: 1. 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 Facet DJD. 2. No fracture or malalignment.
== END 2025-03-31 12:07 | disposition home or self-care (01) ==
PROVIDERS: PCP Registered Nurse; Visit Provider Registered Nurse
DX: M47.22 Other spondylosis with radiculopathy, cervical region (principal)
CPT/HCPCS: 72040

== ENCOUNTER → 2025-04-26 10:09 | Outpatient (BNVA) | payer MEDICARE, SELFPAY | PROVIDERS: PCP Registered Nurse; Visit Provider Podiatrist Foot & Ankle Surgery | DX: E11.42 Type 2 diabetes mellitus with diabetic polyneuropathy (principal); L60.3 Nail dystrophy; L84 Corns and callosities; E11.8 Type 2 diabetes mellitus with unspecified complications; I73.9 Peripheral vascular disease, unspecified; Z79.4 Long term (current) use of insulin | CPT/HCPCS: 11056; 11721 ==

== ENCOUNTER → 2025-05-10 10:26 | Outpatient (BNVA) | payer MEDICARE, SELFPAY | PROVIDERS: PCP Registered Nurse; Visit Provider Nurse Practitioner Family | DX: M54.2 Cervicalgia (principal) | CPT/HCPCS: 99203; 99214 ==

== ENCOUNTER → 2025-05-25 13:31 | Outpatient (BNVA) | payer MEDICARE, SELFPAY | PROVIDERS: PCP Registered Nurse; Visit Provider Registered Nurse | DX: E11.42 Type 2 diabetes mellitus with diabetic polyneuropathy (principal) | CPT/HCPCS: 80048; 83036 ==

== ENCOUNTER → 2025-06-21 09:49 | Outpatient (BNVA) | payer MEDICARE, SELFPAY | PROVIDERS: PCP Registered Nurse; Visit Provider Nurse Practitioner Family | DX: M54.2 Cervicalgia (principal) | CPT/HCPCS: 99214 ==